=== PATIENT | male | born 1995 | race Two or more races ===

== ENCOUNTER 2023-09-16 11:06 | Emergency (ER) | payer SELFPAY ==
[~2023-09-16] VITALS: Ht 165.1 cm; Wt 99.5 kg
[2023-09-16 12:38] VITALS: BP 134/76; PULSE 78; RESP 18; TEMP 98.3; O2SAT 100
[2023-09-16 12:54] LABS: Urine Bacteria NONE SEEN /hpf (None Seen); Urine Blood 2+ /uL (Negative); Urine Clarity CLOUDY (Clear); Urine Color Yellow (Yellow); Urine Mucus FEW (None Seen); Urine Protein, UAD TRACE (Negative); Urine Urobilinogen Normal (Negative); Urine WBC 1744 /hpf (0 - 3); Urine WBC Clumps PRESENT /hpf (None Seen)
[2023-09-16] MEDS ORDERED: cefTRIAXone SOD 1,000 MG VL IM ONE (13:15)
[2023-09-16] MEDS ORDERED: DOXY-447 PO (13:20)
[2023-09-16] MEDS ORDERED: NAPR-746 PO (13:20)
== END 2023-09-16 13:37 | disposition home or self-care (01) ==
LOC: ER 11:06
DX: N34.2 Other urethritis (principal); Z20.2 Contact with and (suspected) exposure to infections with a predominantly sexual mode of transmission
CPT/HCPCS: 81001; 96372; 99283; J0696